=== PATIENT | male | born 1960 | race Two or more races ===

== ENCOUNTER 2020-06-28 14:12 | Outpatient (REF) | payer BC, SELFPAY ==
[2020-06-28 14:36] LABS: COVID-19 Test Negative (Negative)
== END 2020-06-28 14:13 | disposition home or self-care (01) ==
LOC: HO.LAB 14:12
PROVIDERS: Visit Provider Internal Medicine
DX: Z20.822 Contact with and (suspected) exposure to COVID-19 (principal)
CPT/HCPCS: 36415; 87635; C9803

== ENCOUNTER 2021-09-11 15:57 | Outpatient (REF) | payer BC, SELFPAY ==
[2021-09-11 16:11] LABS: MANUAL DIFF FLAG NO
[2021-09-11 16:42] LABS: Basophils Absolute Auto 0.1 X10*3/uL (0.0-0.2); Basophils Percent Auto 0.6 % (0-2); Eosinophils Absolute Auto 0.2 X10*3/uL (0.0-0.4); Hematocrit 44.4 % (42.0-52.0); Hemoglobin 15.1 g/dl (14.0-18.0); Imm Gran Abs Auto 0.02 X10*3/uL (0.00-0.03); Imm Gran Pct Auto 0.3 % (0.0-0.4); Lymphocytes Absolute Auto 2.6 X10*3/uL (1.2-4.9); Lymphocytes Percent Auto 32.8 % (20-40); Mean Corpuscular Volume 85.4 fL (80.0-98.0); Mean Platelet Volume 9.5 fL (9.4-12.4); Monocytes Absolute Auto 0.6 X10*3/uL (0.1-1.2); Monocytes Percent Auto 7.3 % (2-11); Neutrophils Absolute Auto 4.5 x10*3/uL (2.0-8.3); Platelet Count 224 X10*3/uL (160-400); Red Cell Distribution Width 12.8 % (11.0-16.0)
[2021-09-11 17:06] LABS: Alanine Aminotransferase 28 U/L (0-40); Albumin Level 4.6 g/dL (3.5-5.0); Alkaline Phosphatase 58 U/L (39-117); Aspartate Amino Transferase 17 U/L (5-37); Bilirubin Direct 0.3 mg/dL (0.0-0.5); Iron 97 mcg/dL (45-160); Percent Iron Saturation 28 % (15-50); Total Iron Binding Capacity 344 mcg/dL (228-428); Total Protein 7.7 g/dL (6.5-8.0); Unsaturated Iron Binding 247 ug/dL
[2021-09-11 17:27] LABS: Ferritin 134 ng/mL (20-250)
== END 2021-09-11 15:58 | disposition home or self-care (01) ==
LOC: HO.LAB 15:57
PROVIDERS: PCP Nurse Practitioner Adult Health; Visit Provider Internal Medicine
DX: K76.0 Fatty (change of) liver, not elsewhere classified (principal)
CPT/HCPCS: 36415; 80076; 82728; 83540; 85025

== ENCOUNTER 2021-11-01 07:29 | Day surgery (SDC) | payer BC, SELFPAY ==
[2021-10-29 14:10] VITALS: BMI 30.2
--- NOTE | 2021-10-31 13:38 | HO.ANESPROP2 ---
HPI - Anesthesia Eval Consult details Narrative: 61yo M for Colonoscopy [facility] Past Medical History Medical History BPH (benign prostatic hyperplasia) Diabetes Elevated cholesterol Fatty liver Surgical History Surgical History H/O colonoscopy Hx of transurethral resection of prostate Social History Social History Patient Tobacco Use Status: Never used Tobacco Use of substances other than those prescribed or required for medical reasons: No Are you DNR?: No Advance Directives: No Advance Directives Information Provided: Yes Advance Directives on File: Yes Meds Allergies Allergy/AdvReac Type Severity Reaction Status Date / Time No Known Allergies Allergy Unverified 10/27/21 18:31 Home Medications Medication Instructions Recorded Confirmed Last Taken Type glipizide 2.5 mg tablet, extended 2.5 mg PO DAILY 10/29/21 11/01/21 10/31/21 History release 24 hr metformin 500 mg tablet 1,000 mg PO BID 10/29/21 10/29/21 10/31/21 History pravastatin 10 mg tablet 10 mg PO BEDTIME 10/29/21 10/29/21 10/31/21 History Exam Exam Date and Time: October 31, 2021 1338 Height,Weight and Vital Signs: Height 5 ft 5 in Weight 82.554 kg Pertinent Lab Results Pertinent Lab Results: Laboratory Tests 09/11/21 16:09 WBC 8.0 Hgb 15.1 Hct 44.4 Plt Count 224 Assessment and Plan Assessment Anesthesia Assessment: Chart Reviewed
--- NOTE | 2021-11-01 08:00 | HO.ANESPROP2 ---
[facility] Past Medical History Medical History (Updated 10/29/21 @ 14:08 by Danae Macias RN) BPH (benign prostatic hyperplasia) Diabetes Elevated cholesterol Fatty liver Family History Family history of problems with anesthesia: No Surgical History Surgical History (Updated 10/29/21 @ 14:08 by Danae Macias RN) H/O colonoscopy Hx of transurethral resection of prostate History of Problems with Anesthesia: No Social History Social History Advance Directives: No Advance Directives Information Provided: Yes Meds Allergies Allergy/AdvReac Type Severity Reaction Status Date / Time No Known Allergies Allergy Unverified 10/27/21 18:31 Active Medications: Current Medications Lactated Ringer's (Lr) 1,000 mls @ 100 mls/hr IVCONT .Q10H JE Sodium Biphosphate/Sodium Phosphate (Sodium Phosphate,[place]-Dibasic 133 Ml Enema) 133 ml MA ONCE PRN PRN Reason: Poor Colonoscopy Prep Results Home Medications Medication Instructions Recorded Confirmed Last Taken Type glipizide 2.5 mg tablet, extended 2.5 mg PO DAILY 10/29/21 10/29/21 Unknown History release 24 hr metformin 500 mg tablet 1,000 mg PO BID 10/29/21 10/29/21 Unknown History pravastatin 10 mg tablet 10 mg PO BEDTIME 10/29/21 10/29/21 Unknown History Exam Exam Date and Time: November 01, 2021 0800 Height,Weight and Vital Signs: Height 5 ft 5 in Weight 82.554 kg Airway Mallampati Class: I TM Dist: >3cm Neck ROM: Full Assessment and Plan Assessment Anesthesia Assessment: Anesthesia Plan Discussed and Chart Reviewed Final Anesthetic Review Family History of Problems with Anesthesia: No History of Problems with Anesthesia: No NPO: Yes ASA Class: II Final Preanesthetic Review: No Changes in Pt Med Stat, Meds/Allgs Chart Reviewed, Consent Obtained/Reviewed and Anes Risks/Benef Reviewed Patient Risk: Low Procedure Risk: Low Anesthetic Plan Anesthetic Plan: GA and MAC: Disposition: Standard PACU
[2021-11-01 08:01] VITALS: BP 140/84; PULSE 76; RESP 18; TEMP 36.4; O2SAT 96; BMI 29.9
[2021-11-01 08:02] LABS: Glucose, Whole Blood 152 mg/dL (60-115)
[2021-11-01] MEDS: Lactated Ringers 1,000 ML 100 ML IVCONT (08:16)
[2021-11-01 09:58] VITALS: BP 100/58; PULSE 79; RESP 16; TEMP 36.6; O2SAT 97
--- NOTE | 2021-11-01 09:59 | P.BOP_ITS ---
Brief Operative Note Date of Service: 11/01/21 Pre-op diagnosis: Screening Post-op diagnosis: other (Polyps) Procedure: Colonoscopy to the cecum with biopsy and removal of polyps Surgeon: Keny Deluca Anesthesia: MAC Was an Smoking Tobacco Packing Machine Hand used for this Procedure?: No Estimated blood loss (mL): 2.0 Pathology: other (A. Ascending colon polyp B. Rectal polyp) Condition: stable Disposition: PACU
[2021-11-01 10:13] VITALS: BP 111/75; PULSE 79; RESP 18; O2SAT 96
[2021-11-01 10:28] VITALS: BP 124/78; PULSE 69; RESP 18; TEMP 36.6; O2SAT 96
--- NOTE | 2021-11-01 11:40 | OP_ITS ---
SURGEON: Keny Deluca MD INDICATIONS: The patient presents for evaluation of colorectal cancer screening. Full consent has been obtained from him for this, including risks of bleeding and perforation. PREOPERATIVE DIAGNOSIS: Colorectal cancer screening. POSTOPERATIVE DIAGNOSIS: PROCEDURE PERFORMED: Colonoscopy to the cecum with biopsy and removal of polyps. ESTIMATED BLOOD LOSS: COMPLICATIONS: ANESTHESIA: Monitored anesthesia care. ASSISTANTS: SPECIMENS: POSTOPERATIVE DIAGNOSES: Colorectal cancer screening, small colon polyps, diverticulosis, and internal hemorrhoids. DESCRIPTION OF PROCEDURE: The patient was placed in the left lateral decubitus position. The digital rectal exam revealed no abnormalities. The Olympus video pediatric colonoscope was entered into the rectum and advanced to the cecum with the assistance of abdominal wall pressure. Once in the cecum, I did identify a normal-appearing cecal pouch with appendiceal orifice and a normal-appearing ileocecal valve. There was transillumination of light deep in the right lower quadrant. The entire cecum was well visualized and appeared normal. The scope was slowly withdrawn assessing all mucosal surfaces carefully. Preparation was excellent. In the ascending colon and rectum were flat less than 5 mm polyps, which were each biopsied and completely removed with the cold biopsy forceps. I did not visualize any other polyps, colitis, or angiodysplasia. There was a mild amount of sigmoid diverticulosis. In the rectum, the scope was retroflexed visualizing internal hemorrhoids. The scope was straightened and withdrawn from the patient. He tolerated the procedure well and was returned to the recovery area in stable condition. IMPRESSION: 1. Colon polyps. 2. Diverticulosis. 3. Internal hemorrhoids. PLAN: The results of the biopsies will be checked. If these are tubular adenoma, I would recommend a followup colonoscopy in 5 years. If they are only hyperplastic, I would recommend a followup colonoscopy in 10 years. MD LORIE Hernandez/RAULL / [id number]
== END 2021-11-01 10:35 | disposition home or self-care (01) ==
PROVIDERS: PCP Nurse Practitioner Adult Health; Visit Provider Internal Medicine
PROC: 0DJD8ZZ Inspection of Lower Intestinal Tract, Via Natural or Artificial Opening Endoscopic (ICD-10-PCS; CPT 45378; principal; 2021-11-01 08:30)
DX: Z12.11 Encounter for screening for malignant neoplasm of colon (principal); D12.2 Benign neoplasm of ascending colon; D12.8 Benign neoplasm of rectum; K57.30 Diverticulosis of large intestine without perforation or abscess without bleeding; K64.8 Other hemorrhoids; K76.0 Fatty (change of) liver, not elsewhere classified; N40.0 Benign prostatic hyperplasia without lower urinary tract symptoms; E78.5 Hyperlipidemia, unspecified; E11.9 Type 2 diabetes mellitus without complications; Z79.84 Long term (current) use of oral hypoglycemic drugs; Z79.82 Long term (current) use of aspirin; Z79.899 Other long term (current) drug therapy
CPT/HCPCS: 45380; 82947; 88305; J2250

== ENCOUNTER 2021-11-17 18:10 | Emergency (ER) | payer BC, SELFPAY ==
--- NOTE | ~2021-11-17 | XR_ITS ---
EXAMINATION: XR FINGER, LEFT CLINICAL INFORMATION: Laceration COMPARISON: None TECHNIQUE: Three views of the left ring finger. PA view of the hand FINDINGS: The bones are normal. No fracture. Alignment is anatomic. Joint spaces are maintained. Soft tissue swelling and overlying bandage material at the distal portion of the fourth digit. XR/XR finger LT min 2V IMPRESSION: Soft tissue deformity at the distal fourth digit, no acute fractures.
[2021-11-17 18:41] VITALS: BP 147/97; PULSE 86; RESP 18; TEMP 37.2; O2SAT 99; BMI 29.9
[2021-11-17 20:37] VITALS: BP 140/81; PULSE 84; RESP 19; TEMP 36.8; O2SAT 97
--- NOTE | 2021-11-17 21:36 | ED_ITS ---
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 came with distal tip of 4th finger laceration no other injury Related Data Home Medications Medication Instructions Recorded Confirmed glipizide 2.5 mg tablet, extended 2.5 mg PO DAILY 10/29/21 11/01/21 release 24 hr metformin 500 mg tablet 1,000 mg PO BID 10/29/21 10/29/21 pravastatin 10 mg tablet 10 mg PO BEDTIME 10/29/21 10/29/21 Previous Rx's Medication Instructions Recorded cephalexin 500 mg capsule 500 mg PO QID 7 days #28 caps 11/17/21 Allergies Allergy/AdvReac Type Severity Reaction Status Date / Time No Known Allergies Allergy Unverified 10/27/21 18:31 Review of Systems Review of Systems: Yes all other systems are reviewed and are negative [facility] Past Medical History Medical History BPH (benign prostatic hyperplasia) Diabetes Elevated cholesterol Fatty liver Surgical History H/O colonoscopy Hx of transurethral resection of prostate Social History Social History Patient Tobacco Use Status: Never used Tobacco Advance Directives: No Physical Exam Vital Signs: Vital Signs: Last Vital Signs Temp 98.2 F 11/17/21 20:37 Pulse 84 11/17/21 20:37 Resp 19 11/17/21 20:37 BP 140/81 H 11/17/21 20:37 Pulse Ox 97 11/17/21 20:37 O2 Del Method 11/17/21 20:37 BMI result Body Mass Index 29.9 Extrem: Hand/finger images: 1. Irregular laceration involving the tip of the bed of the nail with loss of skin neurovascular intact Procedures Laceration Laceration 1: Site: hand (Fourth finger) Side (If applicable): left Size (cm): 1 Description: flap Depth: simple, single layer Local Anesthetic: lidocaine 1% Amount of anesthesia used (mL): 2 Pre-repair: deep structures intact Skin layer closed with: vicryl Size (cm): 5-0 Number of sutures: 5 Technique: simple, interrupted Discharge Plan Discharge Clinical Impression: Laceration Patient Disposition: Home, Self-Care Instructions: Finger Laceration (ED) Additional Instructions: Local care as advised Sutures will dissolve their own Take antibiotic to avoid infection Prescriptions: New cephalexin 500 mg capsule 500 mg PO QID 7 Days Qty: 28 0RF No Action metformin 500 mg Tablet 1,000 mg PO BID pravastatin 10 mg Tablet 10 mg PO BEDTIME glipizide 2.5 mg Tablet Extended Release 24hr 2.5 mg PO DAILY
[2021-11-17] MEDS: cephALEXin 500 MG CAPSULE PO (21:44)
== END 2021-11-17 21:45 | disposition home or self-care (01) ==
PROVIDERS: Emergency Provider Internal Medicine
DX: S61.215A Laceration without foreign body of left ring finger without damage to nail, initial encounter (principal); W31.9XXA Contact with unspecified machinery, initial encounter; Y93.9 Activity, unspecified; Y92.9 Unspecified place or not applicable; Y99.9 Unspecified external cause status; Z79.899 Other long term (current) drug therapy
CPT/HCPCS: 12001; 73140; 99283